=== PATIENT | female | born 1955 | race Caucasian/White ===

== ENCOUNTER → 2016-06-10 13:23 | Outpatient (CLI) | payer BC ==
[2014-11-04 10:47] VITALS: BMI 20.7
== END | disposition home or self-care (01) ==
LOC: D.RAD 09:00 → D.RT 13:23
DX: J47.9 Bronchiectasis, uncomplicated (principal)

== ENCOUNTER 2016-11-29 08:53 | Outpatient (CLI) | payer BC ==
[~2016-11-29] VITALS: Ht 170.2 cm; Wt 61.4 kg
[2016-11-29] MEDS ORDERED: RIFADIN300 MG PO (10:06)
[2016-11-29] MEDS ORDERED: MYAMBUTOL400 MG PO (10:07)
[2016-11-29] MEDS ORDERED: ZITHROMAX TRI-500 MG PO (10:07)
[2016-11-29] MEDS ORDERED: HCTZ25 MG PO (10:08)
[2016-11-29 10:12] VITALS: BP 131/70; Ht 170.2 cm; Wt 61.4 kg
[2016-11-29 10:50] LABS: BASOPHILS 0.2 % (0-2); EOSINOPHILS 2.5 % (0-7); HEMATOCRIT 39.9 % (36.0-48.0); HEMOGLOBIN 13.4 g/dL (12-16); IMMATURE GRANULOCYTES 0.2 % (0-5); LYMPHOCYTES 24.4 % (15-50); MCH 30.6 pg (26.0-34.0); MCHC 33.6 g/dL (31.0-37.0); MCV 91.1 fL (80.0-100.0); MEAN PLATELET VOLUME 9.8 fL (7.4-10.4); MONOCYTES 9.1 % (2-11); NEUTROPHILS 63.6 % (40-80); PLATELET COUNT 232 10x3/uL (130-400); RBC 4.38 10x6/uL (4.00-5.40); WBC 4.8 10x3/uL (4.8-10.8)
[2016-11-29 11:27] LABS: APTT 29.3 SECONDS (22.8-39.4); INR 0.96 (0.85-1.17); PROTIME 12.7 SECONDS (11.6-15.0)
[2016-11-30 16:09] LABS: ACID FAST SMEAR Negative (()); AFB SPECIMEN PROCESSING Concentration (())
[2016-12-02 11:11] LABS: FUNGUS STAIN Final report (())
== END 2016-11-29 14:15 | disposition home or self-care (01) ==
LOC: D.OPS 08:53
PROVIDERS: Internal Medicine Pulmonary Disease
DX: J47.9 Bronchiectasis, uncomplicated (principal); J45.909 Unspecified asthma, uncomplicated; R05 Cough; Z01.812 Encounter for preprocedural laboratory examination

== ENCOUNTER → 2017-01-30 11:24 | Outpatient (CLI) | payer BC ==
[2016-11-29 10:12] VITALS: BMI 21.2
[~2017-01-30 11:24] MED LIST: HCTZ25 MG PO; MYAMBUTOL400 MG PO; RIFADIN300 MG PO; ZITHROMAX TRI-500 MG PO
== END | disposition home or self-care (01) ==
LOC: D.RAD 10:45
DX: A31.0 Pulmonary mycobacterial infection (principal)

== ENCOUNTER → 2017-07-15 13:37 | Outpatient (CLI) | payer BC ==
[2016-11-29 10:12] VITALS: BMI 21.2
== END | disposition home or self-care (01) ==
LOC: D.RAD 13:37
DX: J47.9 Bronchiectasis, uncomplicated (principal)

== ENCOUNTER → 2018-04-21 13:51 | Outpatient (CLI) | payer BC ==
[2016-11-29 10:12] VITALS: BMI 21.2
== END | disposition home or self-care (01) ==
LOC: D.CT 13:51 → D.RT 05-07 13:00
DX: A31.0 Pulmonary mycobacterial infection (principal)

== ENCOUNTER → 2018-05-20 13:11 | Outpatient (CLI) | payer BC ==
[2016-11-29 10:12] VITALS: BMI 21.2
== END | disposition home or self-care (01) ==
LOC: D.RT 13:00
DX: J45.909 Unspecified asthma, uncomplicated (principal)

== ENCOUNTER → 2018-06-02 14:24 | Outpatient (CLI) | payer BC ==
[2016-11-29 10:12] VITALS: BMI 21.2
[2018-06-02 16:00] LABS: BASOPHILS 0.5 % (0-2); EOSINOPHILS 1.9 % (0-7); HEMATOCRIT 37.5 % (36.0-48.0); HEMOGLOBIN 12.9 g/dL (12-16); IMMATURE GRANULOCYTES 0.2 % (0-5); LYMPHOCYTES 24.2 % (15-50); MCH 30.6 pg (26.0-34.0); MCHC 34.4 g/dL (31.0-37.0); MCV 89.1 fL (80.0-100.0); MEAN PLATELET VOLUME 9.3 fL (7.4-10.4); MONOCYTES 4.7 % (2-11); NEUTROPHILS 68.5 % (40-80); PLATELET COUNT 258 10x3/uL (130-400); RBC 4.21 10x6/uL (4.00-5.40); RDW 12.2 % (11.5-14.5); WBC 6.4 10x3/uL (4.8-10.8)
== END | disposition home or self-care (01) ==
LOC: D.LAB 11:15 → D.RAD 14:15 → D.LAB 14:24
PROVIDERS: Internal Medicine Pulmonary Disease
DX: J45.909 Unspecified asthma, uncomplicated (principal)

== ENCOUNTER → 2018-10-14 14:24 | Outpatient (CLI) | payer BC ==
[2016-11-29 10:12] VITALS: BMI 21.2
== END | disposition home or self-care (01) ==
LOC: D.RT 10-09 09:00 → D.RAD 10-09 09:45 → D.RT 10-09 14:00
PROVIDERS: ATTEND Internal Medicine Pulmonary Disease
DX: J45.909 Unspecified asthma, uncomplicated (principal); A31.0 Pulmonary mycobacterial infection